=== PATIENT | male | born 1990 | race Caucasian/White ===

== ENCOUNTER 2022-06-17 15:47 | Emergency (ER) | payer OTHER, BC ==
[~2022-06-17] VITALS: Ht 180.3 cm; Wt 81.0 kg
[2022-06-17 17:31] VITALS: BP 119/72
== END 2022-06-17 17:31 | disposition home or self-care (01) | DRG 556 ==
LOC: ED 15:47
DX: M25.562 Pain in left knee (principal); M25.572 Pain in left ankle and joints of left foot